=== PATIENT | female | born 2000 | race Caucasian/White ===

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

== ENCOUNTER 2020-02-15 11:32 | Emergency (ER) | payer OTHER ==
[~2020-02-15] VITALS: Ht 149.9 cm; Wt 36.3 kg
[~2020-02-15 11:32] MED LIST changes: +ALBUTEROL2.5 MG/0.5 INH; +PREDNISONE 20 M20 MG PO; +PROAIR HFA8.5 GM INH; +ZPAK PO
[2020-02-15] MEDS ORDERED: VENTOLIN HFA 1818 GM INH (13:08)
[2020-02-15] MEDS ORDERED: ALBUTEROL2.5 MG/31 INH (13:08)
[2020-02-15] MEDS ORDERED: PREDNISONE50 MG PO (13:08)
[2020-02-15 13:47] VITALS: BP 118/72
== END 2020-02-15 13:45 | disposition home or self-care (01) ==
LOC: M.ERS 11:32
DX: J45.901 Unspecified asthma with (acute) exacerbation (principal); Z20.828 Contact with and (suspected) exposure to other viral communicable diseases; Z88.0 Allergy status to penicillin